=== PATIENT | male | born 1975 | race Caucasian/White ===

== ENCOUNTER 2017-11-01 11:34 | Emergency (ER) | payer OTHER ==
[~2017-11-01] VITALS: Ht 180.3 cm; Wt 111.1 kg
[~2017-11-01 11:34] MED LIST: Cyclobenzaprine5 MG PO; Norco 5-325 Ta1 EACH PO; Ultram50 MG PO
[2017-11-01] MEDS ORDERED: Augmentin 875-1 EACH PO (12:22)
[2017-11-01] MEDS ORDERED: Naprosyn500 MG PO (12:22)
== END 2017-11-01 12:28 | disposition home or self-care (01) ==
LOC: ER 11:34
DX: K08.89 Other specified disorders of teeth and supporting structures (principal); J32.9 Chronic sinusitis, unspecified; R51 Headache; Z88.8 Allergy status to other drugs, medicaments and biological substances; Z88.5 Allergy status to narcotic agent; F17.210 Nicotine dependence, cigarettes, uncomplicated
CPT/HCPCS: 99282

== ENCOUNTER 2018-04-28 16:10 | Emergency (ER) | payer OTHER ==
[~2018-04-28] VITALS: Ht 180.3 cm; Wt 111.1 kg
[~2018-04-28 16:10] MED LIST changes: +Augmentin 875-1 EACH PO; +IBUP800 PO; +Naprosyn500 MG PO; +Voltaren100 GM TOP
[2018-04-28] MEDS ORDERED: Veetids 500500 MG PO (16:44)
== END 2018-04-28 16:47 | disposition home or self-care (01) ==
LOC: ER 16:10
DX: K04.7 Periapical abscess without sinus (principal); K02.9 Dental caries, unspecified
CPT/HCPCS: 99282

== ENCOUNTER 2018-08-11 22:59 | Observation (INO) | payer OTHER ==
[~2018-08-11] VITALS: Ht 180.3 cm; Wt 120.2 kg
[~2018-08-11 22:59] MED LIST changes: +Veetids 500500 MG PO
[2018-08-11 23:27] LABS: BASOPHILS ABSOLUTE AUTO 0.05 K/mm3 (0.00-0.23); BASOPHILS PERCENT AUTO 0 % (0-2); EOSINOPHILS PERCENT AUTO 0 % (0-6); Hematocrit 51.4 % (37.0-53.0); Hemoglobin 18.2 g/dL (13.5-17.5); IMMATURE GRAN PERCENT AUTO 1 % (0-1); LYMPHOCYTES ABSOLUTE AUTO 1.75 K/mm3 (0.84-5.20); LYMPHOCYTES PERCENT AUTO 8 % (21-46); MONOCYTES ABSOLUTE AUTO 0.68 K/mm3 (0.16-1.47); MONOCYTES PERCENT AUTO 3 % (4-13); Mean Corpuscular HGB Conc 35.4 g/dL (31.5-36.5); Mean Corpuscular Volume 90 fL (80-100); Mean Platelet Volume 10.4 fL (9.1-12.4); NEUTROPHILS ABSOLUTE AUTO 19.63 K/mm3 (1.96-9.15); NEUTROPHILS PERCENT AUTO 88 % (41-73); Platelet Count 290 K/mm3 (150-400); RDW Coefficient Variation 12.4 % (11.7-14.2); RDW Standard Deviation 40.4 fL (35.1-46.3); Red Blood Cell Count 5.69 M/mm3 (4.30-5.90); White Blood Cell Count 22.21 K/mm3 (4.00-11.30)
[2018-08-11 23:52] LABS: Troponin I <0.015 ng/mL (0.000-0.040)
[2018-08-11 23:53] LABS: Alanine Aminotransfer (ALT/SGP 37 U/L (12-78); Albumin, Blood 4.2 g/dL (3.4-5.0); Albumin/Globulin Ratio 1.1 (0.8-1.8); Alk Phos 75 U/L (50-136); Anion Gap 9 mmol/L (6-16); Aspartate Aminotrans (AST/SGOT 21 U/L (12-37); Bilirubin, Total 0.8 mg/dL (0.1-1.0); Blood Urea Nitrogen 21 mg/dL (8-24); Bun/Creatinine Ratio 29.1 (12.0-20.0); CO2, Blood 23 mmol/L (21-32); Calcium, Blood 9.2 mg/dL (8.5-10.1); Chloride, Blood 106 mmol/L (98-108); Creatinine, Blood 0.72 mg/dL (0.60-1.20); Globulin, Blood 3.7 g/dL (2.2-4.0); Glomerular Filtration Rate >60 (60-); Glucose, Blood 143 mg/dL (70-99); Sodium, Blood 138 mmol/L (136-145); Total Protein, Blood 7.9 g/dL (6.4-8.2)
--- NOTE | 2018-08-12 13:52 | NUR ---
PT TO DAY SURGERY VIA W/C
--- NOTE | 2018-08-12 14:30 | NUR ---
Patient up to Ambulate independently. Gait steady. Surgical site prepped with 2% Chlorhexidine cloth wipe. History, Chart, Medications and Allergies reviewed before start of procedure.Lungs WITH I/S WHEEZES T/O. WILL GIVE DOUNEB TX. T/O to Auscultation. Patient confirms NPO status and agrees with scheduled surgery.
--- NOTE | 2018-08-12 20:00 | NUR ---
SHIFT SUMMARY PT HAD LAP FILIPPO TODAY. ARRIVED TO ROOM AT 1725, LAP SITES x 4 WITH GAUZE AND OPSITE, NO SHADOWING OR DRAINAGE NOTED. PAIN AT TOLERABLE LEVEL "JUST TENDER" DENIES N/V. CLEAR LQS GIVEN.
--- NOTE | 2018-08-13 04:58 | NUR ---
SHIFT SUMMARY PT A&O X4 T/O SHIFT. POD#1 LAP FILIPPO; ABD SOFT; PAIN MANAGED PER EMAR; BT X4; CLEAR DIET; PT REPORTS FLATUS. NAUSEA W/ SCANT EMESIS X1. PT UP IN ROOM AND COLLINS INDEPENDENTLY. CALL LIGHT IN REACH; PT DEMONSTRATES USE. WCTM UNTIL REPORT TO DAY SHIFT RN.
[2018-08-13] MEDS ORDERED: Percocet 5-3251 EACH PO (09:32)
[2018-08-13] MEDS ORDERED: ABAT250V (09:32)
--- NOTE | 2018-08-13 09:51 | NUR ---
SHIFT SUMMARY PT A&OX4, VSS, LEFT FLOOR WITH ALL PERSONAL POSSESSIONS INCLUDING DISCHARGE PACKET AND 1 NARCOTIC SCRIPT. DISCHARGE INSTRUCTIONS PROVIDED. PT REP UNDERSTANDING THOSE INSTRUCTIONS INCLUDING OK TO SHOWER, NO RIVER/TUB/JACUZZI. SPLINTING W/COUGH, SNEEZE, ROLL TO GET UP. TCDB. LEAVE STERIS IN PLACE 7-10 UNTIL FU WITH SURGEON. IV DC'D.
== END 2018-08-13 09:56 | disposition home or self-care (01) ==
LOC: ER 22:59 → SURS 23:00 → ERHOLD 23:00 → SURS 23:01 → ER 08-12 04:04 → ERHOLD 08-12 04:04 → SURS 08-12 04:04 → ERHOLD 08-12 08:18 → SURS 08-12 08:20
PROVIDERS: Emergency Medicine; Surgery; ADMIT Surgery
PROC: BF13YZZ Fluoroscopy of Gallbladder and Bile Ducts using Other Contrast (ICD-10-PCS; 2018-08-12)
PROC: 0FT44ZZ Resection of Gallbladder, Percutaneous Endoscopic Approach (ICD-10-PCS; principal; 2018-08-12 13:00)
DX: K80.12 Calculus of gallbladder with acute and chronic cholecystitis without obstruction (principal); I10 Essential (primary) hypertension; F17.200 Nicotine dependence, unspecified, uncomplicated; Z88.8 Allergy status to other drugs, medicaments and biological substances; Z79.899 Other long term (current) drug therapy
CPT/HCPCS: 36415; 71046; 74300; 76705; 80053; 83690; 84484; 85025; 88304; 93005; 93010; 94640; 96361; 96365; 96366; 96374; 96375; 96376; 99285-25; C1729; G0378; J1100; J1170; J1885; J2060; J2250; J2405; J2543; J2704; J2710; J3010; J7030; J7120

== ENCOUNTER 2020-02-21 07:58 | Observation (INO) | payer OTHER ==
[~2020-02-21] VITALS: Ht 180.3 cm; Wt 115.2 kg
[~2020-02-21 07:58] MED LIST changes: +ABAT250V; +Percocet 5-3251 EACH PO
[2020-02-21 08:23] LABS: BASOPHILS ABSOLUTE AUTO 0.08 K/mm3 (0.00-0.23); BASOPHILS PERCENT AUTO 0 % (0-2); EOSINOPHILS ABSOLUTE AUTO 0.48 K/mm3 (0.00-0.68); EOSINOPHILS PERCENT AUTO 2 % (0-6); Hemoglobin 19.4 g/dL (13.5-17.5); IMMATURE GRAN ABSOLUTE AUTO 0.12 K/mm3 (0.00-0.10); IMMATURE GRAN PERCENT AUTO 1 % (0-1); LYMPHOCYTES ABSOLUTE AUTO 2.54 K/mm3 (0.84-5.20); LYMPHOCYTES PERCENT AUTO 12 % (21-46); MONOCYTES ABSOLUTE AUTO 0.87 K/mm3 (0.16-1.47); MONOCYTES PERCENT AUTO 4 % (4-13); Mean Corpuscular HGB Conc 33.9 g/dL (31.5-36.5); Mean Corpuscular Volume 92 fL (80-100); Mean Platelet Volume 9.9 fL (9.1-12.4); NEUTROPHILS PERCENT AUTO 81 % (41-73); Platelet Count 322 K/mm3 (150-400); RDW Coefficient Variation 12.5 % (11.7-14.2); RDW Standard Deviation 42.3 fL (35.1-46.3); Red Blood Cell Count 6.25 M/mm3 (4.30-5.90); White Blood Cell Count 21.49 K/mm3 (4.00-11.30)
[2020-02-21 08:33] LABS: Hematocrit 57.3 % (37.0-53.0)
[2020-02-21 08:54] LABS: Alanine Aminotransfer (ALT/SGP 54 U/L (12-78); Albumin, Blood 4.3 g/dL (3.4-5.0); Alk Phos 69 U/L (50-136); Anion Gap 6 mmol/L (6-16); Aspartate Aminotrans (AST/SGOT 29 U/L (12-37); Bilirubin, Total 0.7 mg/dL (0.1-1.0); Blood Urea Nitrogen 19 mg/dL (8-24); CO2, Blood 27 mmol/L (21-32); Calcium, Blood 9.1 mg/dL (8.5-10.1); Chloride, Blood 105 mmol/L (98-108); Creatinine, Blood 0.76 mg/dL (0.60-1.20); Globulin, Blood 4.2 g/dL (2.2-4.0); Glomerular Filtration Rate >60 (60-); Glucose, Blood 131 mg/dL (70-99); Potassium, Blood 4.7 mmol/L (3.5-5.5); Sodium, Blood 138 mmol/L (136-145); Total Protein, Blood 8.5 g/dL (6.4-8.2)
[2020-02-21] MEDS ORDERED: ONDA4ODT MM (10:42)
--- NOTE | 2020-02-21 16:41 | NUR ---
RECIEVED REPORT FROM HILARIA SAENZ RN, @ 2790. PATIENT ARRIVED TO ROOM 306 AT 1515. CHILLS NOTED BUT TEMP WAS WNL. BP ELEVATED AND DR GRAHAM CALLED TO NOTIFY. PATIENT WAS ALERT BUT EXTREMELY TIRED AND FALLING TO SLEEP. IV FLUIDS STARTED PER EMAR. PATIENT STARTED ON IV ABX. ORDERS FOR PRN HYDRALAZINE PLACED AND WILL BE ADMINISTERED TO PATIENT. ADMIT H&P AND ASSESSMENT COMPLETED. PATIENT DENIES TAKING ANY MEDICATION AT HOME. PATIENT IS CURRENTLY SLEEPING IN BED. WILL CONTINUE TO MONITOR AND PROVIDE CARE NEEDED. CALL LIGHT WITHIN REACH.
--- NOTE | 2020-02-22 03:59 | NUR ---
POLEYARD SUPERVISOR NEHAL PT REMAINS LETHARGIC, HAS CONTINUED TO SLEEP ENTIRE SHIFT. WILL REPLY WITH SHORT ANSWERS WHEN ASKED QUESTIONS DURING ASSESSMENT AND VITALS BUT THEN FALLS BACK ASLEEP SOON AFTER. DENIES N/V, NO BM'S THIS SHIFT THEREFORE UNABLE TO COLLECT STOOL SAMPLE FOR GI PANEL. NO ACUTE NEEDS AT THIS TIME. BED IN LOWEST POSITION WITH CALL LIGHT IN REACH. WILL CONTINUE TO MONITOR AND REPORT TO ONCOMING RN.
[2020-02-22 04:51] LABS: Hematocrit 49.3 % (37.0-53.0); Hemoglobin 16.4 g/dL (13.5-17.5); Mean Corpuscular HGB 30.8 pg (26.0-34.0); Mean Corpuscular HGB Conc 33.3 g/dL (31.5-36.5); Mean Corpuscular Volume 93 fL (80-100); Mean Platelet Volume 9.6 fL (9.1-12.4); Platelet Count 261 K/mm3 (150-400); RDW Coefficient Variation 12.7 % (11.7-14.2); RDW Standard Deviation 43.2 fL (35.1-46.3); Red Blood Cell Count 5.33 M/mm3 (4.30-5.90)
[2020-02-22 05:07] LABS: Anion Gap 6 mmol/L (6-16); Blood Urea Nitrogen 14 mg/dL (8-24); Bun/Creatinine Ratio 19.6 (12.0-20.0); CO2, Blood 28 mmol/L (21-32); Calcium, Blood 7.9 mg/dL (8.5-10.1); Chloride, Blood 108 mmol/L (98-108); Creatinine, Blood 0.71 mg/dL (0.60-1.20); Glomerular Filtration Rate >60 (60-); Glucose, Blood 108 mg/dL (70-99); Potassium, Blood 3.5 mmol/L (3.5-5.5); Sodium, Blood 142 mmol/L (136-145)
[2020-02-22 09:08] LABS: U Amphetamine Screen Not Detected; U Barbituate Screen Not Detected; U Benzodiazapine Screen Not Detected; U Buprenorphine Screen Not Detected; U Cannabinoids Screen DETECTED; U Cocaine Screen Not Detected; U Methadone Screen Not Detected; U Methamphetamine Screen Not Detected; U Opiates Screen Not Detected; U Oxycodone Screen Not Detected; U Phencyclidine Screen Not Detected; U Propoxyphene Screen Not Detected
[2020-02-22] MEDS ORDERED: METR500 PO (11:38)
[2020-02-22] MEDS ORDERED: CIPR500 PO (11:38)
[2020-02-22] MEDS ORDERED: VISBIOME PROBIOTIC PO (11:39)
[2020-02-22] MEDS ORDERED: ONDA4ODT MM (11:40)
--- NOTE | 2020-02-22 12:36 | NUR ---
PT DISCHARGED TO HOME. MEDICATIONS FAXED TO PHARMACY. PT EDUCATED ABOUT NEW MEDICATIONS. PT AWARE ABOUT THE UPCOMING APPOINTMENT ON THE . IV DCD. PT WALKED WITH NURSE. NO OTHER COMPLAINTS DURING THIS DISCHARGE. VSS
== END 2020-02-22 12:27 | disposition home or self-care (01) ==
LOC: ER 07:58 → MEDS 07:59
PROVIDERS: Emergency Medicine; Nurse Practitioner Acute Care; ADMIT Internal Medicine
DX: K52.9 Noninfective gastroenteritis and colitis, unspecified (principal); I10 Essential (primary) hypertension; F17.210 Nicotine dependence, cigarettes, uncomplicated; Z91.048 Other nonmedicinal substance allergy status
CPT/HCPCS: 36415; 74177; 80048; 80053; 83605; 83690; 85025; 85027; 87040; 96361; 96365; 96372; 96374-59; 96375; 96376; 99285-25; A9270; G0378; J0360; J0744; J0780; J1200; J1650; J2405; J2765; J3360; J7030; J7120; Q9967

== ENCOUNTER 2020-04-08 16:44 | Emergency (ER) | payer OTHER ==
[~2020-04-08] VITALS: Ht 180.3 cm; Wt 117.9 kg
[~2020-04-08 16:44] MED LIST changes: +CIPR500 PO; +METR500 PO; +ONDA4ODT MM; +VISBIOME PROBIOTIC PO
[2020-04-08 17:41] LABS: BASOPHILS ABSOLUTE AUTO 0.09 K/mm3 (0.00-0.23); BASOPHILS PERCENT AUTO 0 % (0-2); EOSINOPHILS ABSOLUTE AUTO 0.11 K/mm3 (0.00-0.68); EOSINOPHILS PERCENT AUTO 1 % (0-6); Hematocrit 53.5 % (37.0-53.0); Hemoglobin 18.9 g/dL (13.5-17.5); IMMATURE GRAN ABSOLUTE AUTO 0.14 K/mm3 (0.00-0.10); IMMATURE GRAN PERCENT AUTO 1 % (0-1); LYMPHOCYTES ABSOLUTE AUTO 3.27 K/mm3 (0.84-5.20); LYMPHOCYTES PERCENT AUTO 16 % (21-46); MONOCYTES ABSOLUTE AUTO 1.19 K/mm3 (0.16-1.47); MONOCYTES PERCENT AUTO 6 % (4-13); Mean Corpuscular HGB 31.7 pg (26.0-34.0); Mean Corpuscular HGB Conc 35.3 g/dL (31.5-36.5); Mean Corpuscular Volume 90 fL (80-100); Mean Platelet Volume 9.9 fL (9.1-12.4); NEUTROPHILS ABSOLUTE AUTO 16.36 K/mm3 (1.96-9.15); NEUTROPHILS PERCENT AUTO 77 % (41-73); Platelet Count 331 K/mm3 (150-400); RDW Coefficient Variation 11.9 % (11.7-14.2); Red Blood Cell Count 5.96 M/mm3 (4.30-5.90); White Blood Cell Count 21.16 K/mm3 (4.00-11.30)
[2020-04-08 18:02] LABS: Albumin, Blood 4.9 g/dL (3.4-5.0); Albumin/Globulin Ratio 1.3 (0.8-1.8); Bilirubin, Total 0.7 mg/dL (0.1-1.0); Bun/Creatinine Ratio 15.1 (12.0-20.0); Calcium, Blood 10.2 mg/dL (8.5-10.1); Creatinine, Blood 1.39 mg/dL (0.60-1.20); Globulin, Blood 3.9 g/dL (2.2-4.0); Potassium, Blood 3.7 mmol/L (3.5-5.5); Total Protein, Blood 8.8 g/dL (6.4-8.2)
[2020-04-08] MEDS ORDERED: FLUO10 PO (20:29)
[2020-04-08 23:25] LABS: Source, Urine Clean Catch
[2020-04-08 23:30] LABS: Appearance, Urine Clear (Clear); Bilirubin, Urine Neg (Neg); Blood, Urine Neg (Neg); Color, Urine Amber (P-Yellow); Glucose Qualitative, Urine Neg (Neg); Ketones, Urine Neg (Neg); Leukocyte Esterase, Urine 1+ (Neg); Nitrite, Urine Neg (Neg); Protein, Urine 1+ (Neg); Specific Gravity, Urine 1.025 (1.003-1.022); Urobilinogen, Urine NORM (Normal)
[2020-04-08 23:45] LABS: Bacteria Mod /hpf; Red Blood Cells, Urine 0-2 /hpf (0-2); Squamous Epithelial Cells Not Seen /hpf (Few)
[2020-04-08 23:46] LABS: Amorphous Light (0-Heavy); Hyaline Casts 50-100 /lpf (0-2)
[2020-04-09] MEDS ORDERED: CEFP200 PO (00:46)
[2020-04-09] MEDS ORDERED: ONDA4ODT MM (00:53)
[2020-04-09] MEDS ORDERED: Percocet 5-3251 EACH PO (00:53)
== END 2020-04-09 01:06 | disposition home or self-care (01) ==
LOC: ER 16:44
PROVIDERS: Physician Assistant
DX: N39.0 Urinary tract infection, site not specified (principal)
CPT/HCPCS: 36415; 74176; 80053; 81001; 85025; 87086; 96360; 96361; 99284-25; A9270; J7030

== ENCOUNTER 2020-07-30 11:52 | Emergency (ER) | payer OTHER ==
[~2020-07-30] VITALS: Ht 182.9 cm; Wt 113.4 kg
[~2020-07-30 11:52] MED LIST changes: +CEFP200 PO; +FLUO10 PO
[2020-07-30 12:46] LABS: BASOPHILS ABSOLUTE AUTO 0.06 K/mm3 (0.00-0.23); BASOPHILS PERCENT AUTO 0 % (0-2); EOSINOPHILS ABSOLUTE AUTO 0.17 K/mm3 (0.00-0.68); EOSINOPHILS PERCENT AUTO 1 % (0-6); Hematocrit 45.3 % (37.0-53.0); Hemoglobin 15.8 g/dL (13.5-17.5); IMMATURE GRAN ABSOLUTE AUTO 0.05 K/mm3 (0.00-0.10); IMMATURE GRAN PERCENT AUTO 0 % (0-1); LYMPHOCYTES ABSOLUTE AUTO 3.25 K/mm3 (0.84-5.20); LYMPHOCYTES PERCENT AUTO 23 % (21-46); MONOCYTES PERCENT AUTO 6 % (4-13); Mean Corpuscular HGB Conc 34.9 g/dL (31.5-36.5); Mean Corpuscular Volume 92 fL (80-100); Mean Platelet Volume 9.9 fL (9.1-12.4); NEUTROPHILS ABSOLUTE AUTO 9.89 K/mm3 (1.96-9.15); NEUTROPHILS PERCENT AUTO 69 % (41-73); Platelet Count 339 K/mm3 (150-400); RDW Coefficient Variation 12.1 % (11.7-14.2); Red Blood Cell Count 4.94 M/mm3 (4.30-5.90); White Blood Cell Count 14.32 K/mm3 (4.00-11.30)
[2020-07-30] MEDS ORDERED: Lisinopril-Hct1 EAC4 PO (12:59)
[2020-07-30 13:05] LABS: Albumin, Blood 4.7 g/dL (3.4-5.0); Albumin/Globulin Ratio 1.2 (0.8-1.8); Bilirubin, Total 1.1 mg/dL (0.1-1.0); Bun/Creatinine Ratio 20.3 (12.0-20.0); Calcium, Blood 9.1 mg/dL (8.5-10.1); Creatinine, Blood 1.43 mg/dL (0.60-1.20); Globulin, Blood 3.8 g/dL (2.2-4.0); Potassium, Blood 3.5 mmol/L (3.5-5.5); Total Protein, Blood 8.5 g/dL (6.4-8.2)
[2020-07-30 14:44] LABS: Source, Urine Clean Catch
[2020-07-30 14:50] LABS: Appearance, Urine Clear (Clear); Bilirubin, Urine Neg (Neg); Blood, Urine Neg (Neg); Color, Urine Yellow (P-Yellow); Glucose Qualitative, Urine Neg (Neg); Ketones, Urine 3+ (Neg); Leukocyte Esterase, Urine Neg (Neg); Nitrite, Urine Neg (Neg); Protein, Urine 1+ (Neg); Urobilinogen, Urine NORM (Normal)
[2020-07-30] MEDS ORDERED: ONDA4ODT MM (15:00)
[2020-07-30] MEDS ORDERED: NAPR500 PO (15:00)
[2020-07-30 15:06] LABS: U Amphetamine Screen DETECTED; U Cannabinoids Screen DETECTED; U Methamphetamine Screen DETECTED; U Opiates Screen DETECTED
[2020-07-30 15:07] LABS: U Barbituate Screen Not Detected; U Benzodiazapine Screen Not Detected; U Buprenorphine Screen Not Detected; U Cocaine Screen Not Detected; U Methadone Screen Not Detected; U Oxycodone Screen Not Detected; U Phencyclidine Screen Not Detected; U Propoxyphene Screen Not Detected
== END 2020-07-30 15:17 | disposition home or self-care (01) ==
LOC: ER 11:52
PROVIDERS: Emergency Medicine; Physician Assistant
DX: R10.9 Unspecified abdominal pain (principal); I10 Essential (primary) hypertension; Z91.09 Other allergy status, other than to drugs and biological substances
CPT/HCPCS: 36415; 74177; 76770; 80053; 83690; 85025; 96361; 96374-59; 96375; 99284-25; J1790; J1885; J2060; J2270; J2405; J7030; Q9967

== ENCOUNTER 2020-08-02 21:53 | Emergency (ER) | payer OTHER ==
[~2020-08-02] VITALS: Ht 180.3 cm; Wt 124.7 kg
[~2020-08-02 21:53] MED LIST changes: +Lisinopril-Hct1 EAC4 PO; +NAPR500 PO
[2020-08-02 22:52] LABS: BASOPHILS ABSOLUTE AUTO 0.04 K/mm3 (0.00-0.23); BASOPHILS PERCENT AUTO 0 % (0-2); EOSINOPHILS ABSOLUTE AUTO 0.27 K/mm3 (0.00-0.68); EOSINOPHILS PERCENT AUTO 2 % (0-6); Hematocrit 41.6 % (37.0-53.0); Hemoglobin 14.6 g/dL (13.5-17.5); IMMATURE GRAN ABSOLUTE AUTO 0.04 K/mm3 (0.00-0.10); IMMATURE GRAN PERCENT AUTO 0 % (0-1); LYMPHOCYTES ABSOLUTE AUTO 2.78 K/mm3 (0.84-5.20); LYMPHOCYTES PERCENT AUTO 24 % (21-46); MONOCYTES PERCENT AUTO 8 % (4-13); Mean Corpuscular HGB 31.8 pg (26.0-34.0); Mean Corpuscular HGB Conc 35.1 g/dL (31.5-36.5); Mean Corpuscular Volume 91 fL (80-100); Mean Platelet Volume 10.4 fL (9.1-12.4); NEUTROPHILS PERCENT AUTO 65 % (41-73); Platelet Count 293 K/mm3 (150-400); RDW Coefficient Variation 12.3 % (11.7-14.2); RDW Standard Deviation 39.9 fL (35.1-46.3); Red Blood Cell Count 4.59 M/mm3 (4.30-5.90); White Blood Cell Count 11.53 K/mm3 (4.00-11.30)
[2020-08-02 23:11] LABS: Alanine Aminotransfer (ALT/SGP 53 U/L (12-78); Albumin, Blood 4.4 g/dL (3.4-5.0); Albumin/Globulin Ratio 1.4 (0.8-1.8); Alk Phos 52 U/L (50-136); Anion Gap 7 mmol/L (6-16); Aspartate Aminotrans (AST/SGOT 41 U/L (12-37); Bilirubin, Total 0.5 mg/dL (0.1-1.0); Blood Urea Nitrogen 23 mg/dL (8-24); Bun/Creatinine Ratio 23.1 (12.0-20.0); CO2, Blood 28 mmol/L (21-32); Calcium, Blood 10.2 mg/dL (8.5-10.1); Chloride, Blood 104 mmol/L (98-108); Globulin, Blood 3.1 g/dL (2.2-4.0); Glomerular Filtration Rate >60 (60-); Glucose, Blood 109 mg/dL (70-99); Potassium, Blood 4.6 mmol/L (3.5-5.5); Sodium, Blood 139 mmol/L (136-145); Total Protein, Blood 7.5 g/dL (6.4-8.2)
[2020-08-02 23:49] LABS: Source, Urine Clean Catch
[2020-08-02 23:54] LABS: Bilirubin, Urine Neg (Neg); Blood, Urine Neg (Neg); Glucose Qualitative, Urine Neg (Neg); Ketones, Urine Neg (Neg); Leukocyte Esterase, Urine Neg (Neg); Nitrite, Urine Neg (Neg); Protein, Urine 1+ (Neg); Urobilinogen, Urine NORM (Normal); pH, Urine 6.5 (5.0-8.0)
[2020-08-02 23:56] LABS: Appearance, Urine Clear (Clear); Color, Urine Yellow (P-Yellow)
[2020-08-03] MEDS ORDERED: ONDA4ODT MM (00:51)
== END 2020-08-03 01:11 | disposition home or self-care (01) ==
LOC: ER 21:53
PROVIDERS: Emergency Medicine
DX: R10.10 Upper abdominal pain, unspecified (principal); R11.0 Nausea; I10 Essential (primary) hypertension; Z88.8 Allergy status to other drugs, medicaments and biological substances; Z87.891 Personal history of nicotine dependence; Z79.899 Other long term (current) drug therapy
CPT/HCPCS: 36415; 80053; 83690; 85025; 96374; 99284; J2405

== ENCOUNTER 2021-04-21 06:16 | Day surgery (SDC) | payer OTHER ==
[~2021-04-21] VITALS: Ht 180.3 cm; Wt 142.0 kg
--- NOTE | 2021-04-21 08:03 | NUR ---
04/21/21 0803 Daja Flaherty 1 MG EPI ADDED TO THE FIRST BAG OF LR PER ORDER FOR IRRIGATION. BUPIVACAINE 0.5% 30 MLS MIXED W/ 0.15 ML EPI PER ORDER TO MAKE BUPIVACAINE 0.5% 1:200,000 FOR INJECTION AT OPSITE BY DR FORTUNE. PT HAS SMALL CIRCULAR SCABS ALL OVER BILATERAL ARMS & LEGS. DR Arabella YE. OK TO PROCEED.
== END 2021-04-21 09:25 | disposition home or self-care (01) ==
LOC: ORSCSDS 06:16
PROVIDERS: Orthopaedic Surgery
PROC: 0SBD4ZZ Excision of Left Knee Joint, Percutaneous Endoscopic Approach (ICD-10-PCS; principal; 2021-04-21 07:30)
DX: S83.242A Other tear of medial meniscus, current injury, left knee, initial encounter (principal); M17.12 Unilateral primary osteoarthritis, left knee; I10 Essential (primary) hypertension; Z87.891 Personal history of nicotine dependence; E66.01 Morbid (severe) obesity due to excess calories; Z68.41 Body mass index [BMI] 40.0-44.9, adult; Z79.899 Other long term (current) drug therapy
CPT/HCPCS: J0171; J0690; J1100; J1885; J2250; J2370; J2405; J2704; J3010; J7120

== ENCOUNTER 2021-05-17 09:43 | Emergency (ER) | payer OTHER ==
[~2021-05-17] VITALS: Ht 180.3 cm; Wt 136.1 kg
[2021-05-17] MEDS ORDERED: HYDCHL25 PO (10:07)
[2021-05-17] MEDS ORDERED: LISINOPRIL-HCT1 EACH PO (10:07)
[2021-05-17 10:31] LABS: BASOPHILS ABSOLUTE AUTO 0.05 K/mm3 (0.00-0.23); BASOPHILS PERCENT AUTO 0 % (0-2); EOSINOPHILS PERCENT AUTO 1 % (0-6); Hematocrit 44.5 % (37.0-53.0); Hemoglobin 15.2 g/dL (13.5-17.5); IMMATURE GRAN ABSOLUTE AUTO 0.05 K/mm3 (0.00-0.10); IMMATURE GRAN PERCENT AUTO 0 % (0-1); LYMPHOCYTES ABSOLUTE AUTO 2.38 K/mm3 (0.84-5.20); LYMPHOCYTES PERCENT AUTO 18 % (21-46); MONOCYTES ABSOLUTE AUTO 0.79 K/mm3 (0.16-1.47); MONOCYTES PERCENT AUTO 6 % (4-13); Mean Corpuscular HGB 30.4 pg (26.0-34.0); Mean Corpuscular HGB Conc 34.2 g/dL (31.5-36.5); Mean Corpuscular Volume 89 fL (80-100); Mean Platelet Volume 9.4 fL (9.1-12.4); NEUTROPHILS ABSOLUTE AUTO 10.08 K/mm3 (1.96-9.15); NEUTROPHILS PERCENT AUTO 75 % (41-73); Platelet Count 345 K/mm3 (150-400); RDW Coefficient Variation 12.1 % (11.7-14.2); RDW Standard Deviation 39.5 fL (35.1-46.3); White Blood Cell Count 13.45 K/mm3 (4.00-11.30)
[2021-05-17 11:02] LABS: Alanine Aminotransfer (ALT/SGP 71 U/L (12-78); Albumin, Blood 4.2 g/dL (3.4-5.0); Albumin/Globulin Ratio 1.2 (0.8-1.8); Alk Phos 53 U/L (50-136); Anion Gap 8 mmol/L (6-16); Aspartate Aminotrans (AST/SGOT 26 U/L (12-37); Bilirubin, Total 0.7 mg/dL (0.1-1.0); Blood Urea Nitrogen 22 mg/dL (8-24); Bun/Creatinine Ratio 20.4 (12.0-20.0); CO2, Blood 28 mmol/L (21-32); Chloride, Blood 95 mmol/L (98-108); Creatinine, Blood 1.08 mg/dL (0.60-1.20); Globulin, Blood 3.6 g/dL (2.2-4.0); Glomerular Filtration Rate >60 (60-); Glucose, Blood 125 mg/dL (70-99); Potassium, Blood 3.3 mmol/L (3.5-5.5); Sodium, Blood 131 mmol/L (136-145); Total Protein, Blood 7.8 g/dL (6.4-8.2)
[2021-05-17] MEDS ORDERED: PROM25 PO (13:39)
== END 2021-05-17 14:22 | disposition home or self-care (01) ==
LOC: ER 09:43
PROVIDERS: Physician Assistant
DX: R11.2 Nausea with vomiting, unspecified (principal); R10.13 Epigastric pain; I10 Essential (primary) hypertension; Z79.899 Other long term (current) drug therapy
CPT/HCPCS: 36415; 71045; 74177; 80053; 83690; 84484; 85025; 93005; 93010; 96374; 96375; 99284-25; J1200; J2405; J2550; J2765; J7030; Q9967

== ENCOUNTER → 2021-07-30 | Outpatient (CLI) | payer OTHER ==
[~2021-07-30] MED LIST changes: +HYDCHL25 PO; +LISINOPRIL-HCT1 EACH PO; +PROM25 PO
[2021-07-30 19:40] LABS: Bun/Creatinine Ratio 20.9 (12.0-20.0); Calcium, Blood 9.6 mg/dL (8.5-10.1); Creatinine, Blood 1.34 mg/dL (0.60-1.20); Potassium, Blood 3.6 mmol/L (3.5-5.5)
== END | disposition home or self-care (01) ==
LOC: LAB SHORT 17:00
PROVIDERS: Physician Assistant
DX: Z13.1 Encounter for screening for diabetes mellitus (principal); I10 Essential (primary) hypertension
CPT/HCPCS: 80048; 83036

== ENCOUNTER 2021-11-11 07:40 | Emergency (ER) | payer OTHER ==
[~2021-11-11] VITALS: Ht 172.7 cm; Wt 138.3 kg
[2021-11-11 08:35] LABS: BASOPHILS ABSOLUTE AUTO 0.07 K/mm3 (0.00-0.23); BASOPHILS PERCENT AUTO 0 % (0-2); EOSINOPHILS ABSOLUTE AUTO 0.13 K/mm3 (0.00-0.68); EOSINOPHILS PERCENT AUTO 1 % (0-6); Hematocrit 49.1 % (37.0-53.0); Hemoglobin 17.3 g/dL (13.5-17.5); IMMATURE GRAN ABSOLUTE AUTO 0.17 K/mm3 (0.00-0.10); IMMATURE GRAN PERCENT AUTO 1 % (0-1); LYMPHOCYTES ABSOLUTE AUTO 3.01 K/mm3 (0.84-5.20); LYMPHOCYTES PERCENT AUTO 12 % (21-46); MONOCYTES ABSOLUTE AUTO 1.36 K/mm3 (0.16-1.47); MONOCYTES PERCENT AUTO 5 % (4-13); Mean Corpuscular HGB 29.7 pg (26.0-34.0); Mean Corpuscular HGB Conc 35.2 g/dL (31.5-36.5); Mean Corpuscular Volume 84 fL (80-100); Mean Platelet Volume 9.4 fL (9.1-12.4); NEUTROPHILS ABSOLUTE AUTO 21.26 K/mm3 (1.96-9.15); NEUTROPHILS PERCENT AUTO 82 % (41-73); Platelet Count 392 K/mm3 (150-400); RDW Coefficient Variation 12.8 % (11.7-14.2); RDW Standard Deviation 38.9 fL (35.1-46.3); Red Blood Cell Count 5.83 M/mm3 (4.30-5.90)
[2021-11-11 08:56] LABS: Albumin/Globulin Ratio 1.1 (0.8-1.8); Bilirubin, Total 0.7 mg/dL (0.1-1.0); Bun/Creatinine Ratio 45.3 (12.0-20.0); Creatinine, Blood 0.64 mg/dL (0.60-1.20); Globulin, Blood 3.8 g/dL (2.2-4.0); Potassium, Blood 3.6 mmol/L (3.5-5.5); Total Protein, Blood 7.8 g/dL (6.4-8.2)
[2021-11-11] MEDS ORDERED: ONDA4ODT MM (10:33)
== END 2021-11-11 10:54 | disposition home or self-care (01) ==
LOC: ER 07:40
PROVIDERS: Physician Assistant
DX: R11.2 Nausea with vomiting, unspecified (principal); I10 Essential (primary) hypertension; Z91.09 Other allergy status, other than to drugs and biological substances; Z79.899 Other long term (current) drug therapy
CPT/HCPCS: 36415; 71045; 80053; 83690; 83880; 84484; 85025; 93005; 93010; 96361; 96374; 99284-25; J2405; J7030

== ENCOUNTER 2022-05-26 05:26 | Inpatient (IN) | payer OTHER ==
[~2022-05-26] VITALS: Ht 180.3 cm; Wt 125.0 kg
[2022-05-26 05:46] LABS: BASOPHILS ABSOLUTE AUTO 0.09 K/mm3 (0.00-0.23); BASOPHILS PERCENT AUTO 1 % (0-2); EOSINOPHILS ABSOLUTE AUTO 0.68 K/mm3 (0.00-0.68); EOSINOPHILS PERCENT AUTO 5 % (0-6); Hematocrit 49.3 % (37.0-53.0); Hemoglobin 16.7 g/dL (13.5-17.5); IMMATURE GRAN ABSOLUTE AUTO 0.04 K/mm3 (0.00-0.10); IMMATURE GRAN PERCENT AUTO 0 % (0-1); LYMPHOCYTES ABSOLUTE AUTO 3.26 K/mm3 (0.84-5.20); LYMPHOCYTES PERCENT AUTO 25 % (21-46); MONOCYTES ABSOLUTE AUTO 1.12 K/mm3 (0.16-1.47); MONOCYTES PERCENT AUTO 9 % (4-13); Mean Corpuscular HGB 28.7 pg (26.0-34.0); Mean Corpuscular HGB Conc 33.9 g/dL (31.5-36.5); Mean Corpuscular Volume 85 fL (80-100); Mean Platelet Volume 9.6 fL (9.1-12.4); NEUTROPHILS ABSOLUTE AUTO 8.04 K/mm3 (1.96-9.15); NEUTROPHILS PERCENT AUTO 61 % (41-73); Platelet Count 292 K/mm3 (150-400); RDW Coefficient Variation 14.2 % (11.7-14.2); RDW Standard Deviation 43.2 fL (35.1-46.3); Red Blood Cell Count 5.81 M/mm3 (4.30-5.90); White Blood Cell Count 13.23 K/mm3 (4.00-11.30)
[2022-05-26] MEDS ORDERED: OMEP20ER PO (05:46)
[2022-05-26 06:09] LABS: Albumin, Blood 3.8 g/dL (3.4-5.0); Bilirubin, Total 0.5 mg/dL (0.1-1.0); Bun/Creatinine Ratio 28.3 (12.0-20.0); Creatinine, Blood 0.64 mg/dL (0.60-1.20); Globulin, Blood 3.8 g/dL (2.2-4.0); Potassium, Blood 3.9 mmol/L (3.5-5.5); Total Protein, Blood 7.6 g/dL (6.4-8.2)
[2022-05-26 06:22] LABS: Influenza A, PCR NEGATIVE (NEGATIVE); Influenza B, PCR NEGATIVE (NEGATIVE); Resp Syncytial Virus, PCR NEGATIVE (NEGATIVE); SARS-Cov-2 (COVID-19) PCR, MMC NEGATIVE (NEGATIVE)
[2022-05-26 07:58] LABS: Base Excess Venous 1.2 mmol/L; Bicarbonate Venous 24.9 mmol/L (24.0-30.0); PCO2 Venous 45.2 mmHg (38-42); pH Blood Venous 7.38 (7.34-7.37)
[2022-05-26 10:30] VITALS: BP 134/81
[2022-05-26 12:50] VITALS: BP 135/80
[2022-05-26 15:53] VITALS: BP 141/87
--- NOTE | 2022-05-26 18:28 | NUR ---
PT ARRIVED FROM ER THIS AM QWITH RESPIRATORY DISTRESS. PT ARRIVES ON BIPAP, HE PLACED ON NASAL CANNULA TO MAINTAIN SPO2 GREATER THAN 92% QWHICH HE IS TOLERATING WELL. PT IS A/O X4, ANSQWERING QWUESTIONS IN FULL SENTENCES. LS NOTED TO HAVE QWHEEZES T/O. HE IS AMBULATORY TO AND FROM BATHROOM QWITHOUT ISSUES. PT IS ON LOW SLIDING INSULIN COVERAGE TO COMPENSATE FOR STEROID THERAPY. VSS. PT REPORTS IMPROVEMENT IN WORK OF BREATHING. EXPERCTORANT AND COUGH SUPPRESSANT WERE ADMINISTERED, ALONG WITH PRN ALBUTEROL UPDRAFTS WHICH HE STS HAVE MADE A FURTHER IMPROVEMENT IN BREATHING. PT HAS NOT REQUIRED BIPAP SINCE ARRIVAL TO THE UNIT. HE HAS BEEN RESTING WELL. DRY HACKING COUGH WITH VERY SCANT MUCUS PRODUCTION IS NOTED.
[2022-05-26 19:47] VITALS: BP 141/75
[2022-05-26 23:21] VITALS: BP 118/77
--- NOTE | 2022-05-27 05:37 | NUR ---
Assumed care of pt at 1900. A/Ox4, cooperative with care and calls appropriately. Maintains over 92% on 3L NC, LS significant inspiratory and expiratory wheezes t/o all lung murphy. Sputum sample obtained this shift. SR/ST on tele low 100's, denies CP/pressure, VSS. Trace BLE edema. No acute changes, will report to dayshift RN.
[2022-05-27 08:08] VITALS: BP 140/87
--- NOTE | 2022-05-27 08:30 | NUR ---
INITIAL ASSESSMENT: Patient is resting in bed with HOB elevated after eating breakfast. He is alert and oriented x4. He denies pain at this time. HRR, ST at 110-once he started coughing his heart rate increases into the 120s. LS are DIM T/O with insp/exp wheezing noted. He has a PC with thick de [place] ve[place] sputum,sputum sample was sent on charter boat operator. BT+.PPP. VSS. 1 unit of insulin given per S/S orders. Patient denies other needs at this time. Call light in reach, will continue to monitor.
--- NOTE | 2022-05-27 12:28 | NUR ---
UPDATE: Report has been given to Cari on Medical Floor, plan is for the patient to be transferred to [facility] when he is done with his lunch. Patient denies other needs at this time. Call light in reach.
[2022-05-27 15:54] VITALS: BP 122/56
--- NOTE | 2022-05-27 17:12 | NUR ---
PT TRANSFERED FROM PCU THIS AFTERNOON. ORIENTED TO THE ROOM. 2 RN SKIN CHECK PREFORMED WITH GABRIELA COLLAZO. PT HAS BEEN ASLEEP INTERMITENTLY SINCE ARRIVAL. HIS BED IS IN THE LOW POSTION AND CALL LIGHT IS WITIN REACH.
[2022-05-27 19:14] VITALS: BP 119/70
[2022-05-28 04:07] VITALS: BP 132/86
[2022-05-28 04:46] LABS: BASOPHILS ABSOLUTE AUTO 0.03 K/mm3 (0.00-0.23); BASOPHILS PERCENT AUTO 0 % (0-2); EOSINOPHILS ABSOLUTE AUTO 0.01 K/mm3 (0.00-0.68); EOSINOPHILS PERCENT AUTO 0 % (0-6); Hematocrit 49.1 % (37.0-53.0); Hemoglobin 16.7 g/dL (13.5-17.5); IMMATURE GRAN ABSOLUTE AUTO 0.13 K/mm3 (0.00-0.10); IMMATURE GRAN PERCENT AUTO 1 % (0-1); LYMPHOCYTES ABSOLUTE AUTO 1.69 K/mm3 (0.84-5.20); LYMPHOCYTES PERCENT AUTO 7 % (21-46); MONOCYTES PERCENT AUTO 4 % (4-13); Mean Corpuscular HGB 29.2 pg (26.0-34.0); Mean Corpuscular Volume 86 fL (80-100); NEUTROPHILS ABSOLUTE AUTO 21.26 K/mm3 (1.96-9.15); NEUTROPHILS PERCENT AUTO 89 % (41-73); Platelet Count 317 K/mm3 (150-400); RDW Coefficient Variation 14.6 % (11.7-14.2); RDW Standard Deviation 45.6 fL (35.1-46.3); Red Blood Cell Count 5.72 M/mm3 (4.30-5.90); White Blood Cell Count 24.02 K/mm3 (4.00-11.30)
[2022-05-28 05:10] LABS: Albumin, Blood 3.6 g/dL (3.4-5.0); Anion Gap 4 mmol/L (6-16); Blood Urea Nitrogen 23 mg/dL (8-24); Bun/Creatinine Ratio 34.9 (12.0-20.0); CO2, Blood 30 mmol/L (21-32); Chloride, Blood 102 mmol/L (98-108); Creatinine, Blood 0.66 mg/dL (0.60-1.20); Glomerular Filtration Rate 118 (60-); Glucose, Blood 138 mg/dL (70-99); Phosphorus, Blood 3.1 mg/dL (2.5-4.9); Potassium, Blood 3.7 mmol/L (3.5-5.5); Sodium, Blood 136 mmol/L (136-145)
[2022-05-28 07:19] VITALS: BP 119/75
[2022-05-28 15:31] VITALS: BP 128/93
--- NOTE | 2022-05-28 18:05 | NUR ---
SHIFT SUMMARY- PT IS ALERT AND ORIENTED X4. 2L NC. PT WALKED AROUND UNIT WITH 2L O2>92%. NO ACUTE CHANGES THIS SHIFT.
[2022-05-28 20:08] VITALS: BP 135/92
--- NOTE | 2022-05-29 04:36 | NUR ---
BEDSIDE REPORT DONE - PT SITTING UP IN BED - PT ON 2L VIA NC- PT AMBULATED IN HALLWAY WITH PORTABLE OXYGEN- SPOT CHECKED OXYGEN WHILE AMBULATING - PT SATS MAINTAINED ABOVE 92% WHILE AMBULATING WITH 2L- PT SLEPT T/O SHIFT- NO C/O PAIN- BED LOW POSITION, CALL LIGHT WITHIN REACH, PT INDEPENDENT IN ROOM
[2022-05-29 04:59] LABS: BASOPHILS ABSOLUTE AUTO 0.02 K/mm3 (0.00-0.23); BASOPHILS PERCENT AUTO 0 % (0-2); EOSINOPHILS PERCENT AUTO 0 % (0-6); Hematocrit 49.1 % (37.0-53.0); Hemoglobin 16.6 g/dL (13.5-17.5); IMMATURE GRAN ABSOLUTE AUTO 0.09 K/mm3 (0.00-0.10); IMMATURE GRAN PERCENT AUTO 1 % (0-1); LYMPHOCYTES ABSOLUTE AUTO 1.45 K/mm3 (0.84-5.20); LYMPHOCYTES PERCENT AUTO 9 % (21-46); MONOCYTES ABSOLUTE AUTO 0.39 K/mm3 (0.16-1.47); MONOCYTES PERCENT AUTO 2 % (4-13); Mean Corpuscular HGB 28.7 pg (26.0-34.0); Mean Corpuscular HGB Conc 33.8 g/dL (31.5-36.5); Mean Corpuscular Volume 85 fL (80-100); NEUTROPHILS ABSOLUTE AUTO 15.08 K/mm3 (1.96-9.15); NEUTROPHILS PERCENT AUTO 89 % (41-73); Platelet Count 334 K/mm3 (150-400); RDW Coefficient Variation 14.2 % (11.7-14.2); RDW Standard Deviation 44.2 fL (35.1-46.3); Red Blood Cell Count 5.79 M/mm3 (4.30-5.90); White Blood Cell Count 17.03 K/mm3 (4.00-11.30)
[2022-05-29 05:39] VITALS: BP 134/83
[2022-05-29 07:04] VITALS: BP 139/97
[2022-05-29] MEDS ORDERED: ALBU2.5V5 INH (10:13)
[2022-05-29] MEDS ORDERED: BENZ100A PO (10:14)
[2022-05-29] MEDS ORDERED: GUAI600T33 PO (10:15)
[2022-05-29] MEDS ORDERED: LACT PO (10:16)
[2022-05-29] MEDS ORDERED: FLUT1DIS5 INH (10:18)
[2022-05-29] MEDS ORDERED: AMOCLA875 PO (10:18)
[2022-05-29] MEDS ORDERED: ALBU90OI INH (10:18)
[2022-05-29] MEDS ORDERED: Deltasone 10 mg10 MG PO (10:21)
--- NOTE | 2022-05-29 13:33 | NUR ---
LATE ENTRY-DISCHARGE 1225 PT DISCHARGED TO HOME. FAMILY AT BEDSIDE. EDUCATED PT ON DISCHARGE INSTRUCTIONS. ALERT AND ORIENTED X4. NO QUESTIONS OR CONCERNS AT THIS TIME
--- NOTE | 2022-05-29 16:36 | NUR ---
UPDATE CALLED PT. UPDATED ABOUT THE PLANNED DELIVERY OF THE NEBULIZER TO HIS HOME. [facility].
== END 2022-05-29 12:30 | disposition home or self-care (01) | DRG 871 ==
LOC: ER 05:26 → PCU 08:31 → MEDS 05-27 12:43
PROVIDERS: Emergency Medicine; ADMIT Family Medicine
PROC: 5A09357 Assistance with Respiratory Ventilation, Less than 24 Consecutive Hours, Continuous Positive Airway Pressure (ICD-10-PCS; principal; 2022-05-26)
PROC: 3E03329 Introduction of Other Anti-infective into Peripheral Vein, Percutaneous Approach (ICD-10-PCS; 2022-05-26)
DX: A41.9 Sepsis, unspecified organism (principal); J18.9 Pneumonia, unspecified organism; J96.02 Acute respiratory failure with hypercapnia; J96.01 Acute respiratory failure with hypoxia; J44.1 Chronic obstructive pulmonary disease with (acute) exacerbation; J44.0 Chronic obstructive pulmonary disease with (acute) lower respiratory infection; E87.1 Hypo-osmolality and hyponatremia; Z66 Do not resuscitate; R65.20 Severe sepsis without septic shock; I10 Essential (primary) hypertension; E11.9 Type 2 diabetes mellitus without complications; Z20.822 Contact with and (suspected) exposure to COVID-19; Z79.899 Other long term (current) drug therapy; Z87.891 Personal history of nicotine dependence; Z90.49 Acquired absence of other specified parts of digestive tract; Z98.890 Other specified postprocedural states; Z91.018 Allergy to other foods; Z87.19 Personal history of other diseases of the digestive system; Z79.811 Long term (current) use of aromatase inhibitors; Z87.442 Personal history of urinary calculi
CPT/HCPCS: 0241U; 36415; 71045; 80053; 80069; 82803; 82947; 83605; 83880; 84484; 85025; 87040; 87070; 87205; 93005; 93010; 94640; 94644; 94660; 94664; 94761; 94762; 96365; 96368; 96375; 99285-25; A9270; J0456; J0696; J1650; J1815; J2930; J7050